=== PATIENT | male | born 1975 | race Caucasian/White ===

== ENCOUNTER 2021-11-25 07:54 | Emergency (ER) | payer BC ==
[~2021-11-25] VITALS: Ht 182.9 cm; Wt 99.8 kg
== END 2021-11-25 08:29 | disposition home or self-care (01) ==
LOC: FSED 08:08
DX: H53.8 Other visual disturbances (principal); H53.10 Unspecified subjective visual disturbances; I10 Essential (primary) hypertension; E78.5 Hyperlipidemia, unspecified; I25.10 Atherosclerotic heart disease of native coronary artery without angina pectoris
CPT/HCPCS: 99282